=== PATIENT | female | born 1970 | race Hispanic/Latino ===

== ENCOUNTER 2024-01-29 08:31 | Day surgery (SDC) | payer OTHER ==
[~2024-01-29] VITALS: Ht 167.6 cm; Wt 113.4 kg
[~2024-01-29 08:31] MED LIST: ADVIL200 MG PO; ALEVE PM 220-251 TAB PO; LISINOPRIL10 MG PO; MULTI VIT PO; PEPCID20 MG PO; PROZAC10 MG PO; TYLENOL500 MG PO
[2024-01-29] MEDS ORDERED: FAMOTIDINE 10MG/ML 2ML SDV IV ONE (08:46)
[2024-01-29] MEDS ORDERED: LACTATED RINGER'S 1,000 ML IV ONE (08:46)
[2024-01-29 10:49] VITALS: BP 126/88
[2024-01-29] MEDS ORDERED: PROPOFOL 200 MG/20 ML VIAL IV ONE (15:17)
[2024-01-29] MEDS ORDERED: LIDOCAINE HCL 2% 2ML SDV IV ONE (15:17)
[2024-01-29] MEDS ORDERED: GLYCOPYRROLATE 0.2 MG/ML IV ONE (15:17)
== END 2024-01-29 11:01 | disposition home or self-care (01) | DRG 951 ==
LOC: ENDO 08:31
PROVIDERS: ATTEND Internal Medicine Gastroenterology
PROC: 0DJD8ZZ Inspection of Lower Intestinal Tract, Via Natural or Artificial Opening Endoscopic (ICD-10-PCS; principal; 2024-01-29)
DX: Z12.11 Encounter for screening for malignant neoplasm of colon (principal); K64.8 Other hemorrhoids; I10 Essential (primary) hypertension; R73.03 Prediabetes; K21.9 Gastro-esophageal reflux disease without esophagitis; F32.A Depression, unspecified